=== PATIENT | male | born 1935 | race Asian ===

== ENCOUNTER 2016-10-19 11:24 | Outpatient (CLI) | payer MEDICARE, OTHER ==
[~2016-10-19] VITALS: Ht 162.6 cm; Wt 75.5 kg
[~2016-10-19 11:24] MED LIST: DEXL60CA2 PO; DIVA125T2 PO; ESCI5TAB10 PO; METO25TA4 PO; ROPI12TA2 PO; TAMS0.4C2 PO
[2016-10-19 11:28] VITALS: BP 132/68; PULSE 65; RESP 18; Ht 162.6 cm; Wt 75.5 kg
[2016-10-19] MEDS ORDERED: TAMS0.4C2 PO (11:35)
--- NOTE | 2016-10-19 12:20 | PN ---
Date/Time of Note Date/Time of Note DATE: 10/19/16 TIME: 12:06 Assessment/Plan Assessment/Plan Assessment/Plan [facility] Outpatient Progress Note Date of Service: 10/19/2016 Today's Assessment & Plan: Overall has remained stable. Patient's most recent liver CT on 09/16/16 showed similar size but with persistent enhancement of part of the patient's known hepatocellular carcinoma in segment 7 of the liver when compared to CT from 05/27. I've discussed this CT with interventional radiology at [facility] (Dr. Castano) and we both agreed that patient will likely benefit from repeat TACE. I explained all of this to the patient and family and answered all their questions to the best my ability. With above assessment, I've recommended the following for today: 1. Repeat TACE 2. Follow-up liver dedicated CT scan of the abdomen and pelvis approximately 3- 4 months after above TACE is done 3. Follow-up with Dr. Beard in 1-2 weeks 4. Multidisciplinary tumor board presentation to review progress so far, and to consider other options such as radioembolization. Thank you again for your great care of this very pleasant gentleman and his wonderful family. If there are any questions, please feel free to call me at . 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 Note that his pre-op platelet count was initially thought to be too low for a resection based on the values we had at [facility] (in the 50's or lower), but then later we had values in the 170' s and 180's range. We also had pre-op MRI and CT that did not show obvious evidence of major portal hypertension or obvious macronodular cirrhosis. I reviewed all our findings, including the anatomy of the region, as well as the natural history and pathophysiology of HCC in the setting of ETOH associated cirrhosis with the help of diagrams as well as reviewing the images in detail, and I recommended above operation. We reviewed the operation in detail, as well as the risks, benefits, and alternatives. After careful consideration of all the options, the patient and family (daughter and other) appeared to understand the risks, benefits and alternatives, and wished to proceed with surgery. S/p exploratory laparoscopy with intraoperative ultrasound of the liver that unfortunately showed unresectable state due to severity of liver cirrhosis 2014. Status post TACE to right lobe of liver 01/20/15, with repeat TACE on . Liver CT on 08/18/2015 showed slight interval increase in the size of the patient's known hepatocellular carcinoma in segment 7 of the liver when compared to CT from 04/01/2015. Status post TACE to right lobe of liver . Liver CT on 03/23/16 showed stable findings with similar size and enhancement pattern of the patient's known hepatocellular carcinoma in segment 7 of the liver when compared to prior CT. Status post TACE to right lobe of liver 06/07/16. Liver CT on 09/16/16 showed stable findings with similar size and enhancement pattern of the patient's known hepatocellular carcinoma in segment 7 of the liver when compared to prior CT. Subjective: No major events or complaints; no abd pain and under control with medications; no n/v/d; no sob or cp; + flatus; + BM and normal; + activity; no reported weight loss. No visits to ED or other major medical issues. Objective: Vitals: See below Exam: GENERAL: On exam, the patient was sitting up in a chair and appeared to be comfortable and in no acute distress. ABDOMEN: Soft, nontender and nondistended. Incisions are clean, dry and intact without any evidence of erythema, edema, discharge, or hernia. There are no peritoneal signs or guarding. SKIN: Skin appears to be pink and feels warm to touch. NEUROLOGIC: Patient is awake, alert, and follows commands appropriately. Exam/Review of Systems Vital Signs Vitals Vital Signs Date Time Temp Pulse Resp B/P Pulse Ox O2 Delivery O2 Flow Rate FiO2 10/19/16 11:28 97.7 65 18 132/68 94 Room Air MALDONADO GRULLON M.D. October 19, 2016 12:18
== END 2016-10-19 16:29 | disposition home or self-care (01) ==
LOC: HPC 11:24
PROVIDERS: ATTEND Transplant Surgery
DX: C22.0 Liver cell carcinoma (principal); K70.30 Alcoholic cirrhosis of liver without ascites; F10.20 Alcohol dependence, uncomplicated
CPT/HCPCS: G0463